=== PATIENT | male | born 1955 | race African-American/Black ===

== ENCOUNTER 2023-06-10 10:36 | Outpatient (CLI) | payer MEDICARE, OTHER | END 2023-06-10 10:37 | disposition home or self-care (01) | LOC: CSHULT 10:36 | PROVIDERS: ATTEND Family Medicine | DX: R74.01 Elevation of levels of liver transaminase levels (principal); K80.20 Calculus of gallbladder without cholecystitis without obstruction | CPT/HCPCS: 76700 ==

== ENCOUNTER 2024-05-03 12:12 | Outpatient (CLI) | payer MEDICARE, OTHER ==
[2024-05-03] MEDS ORDERED: Magnevist 469MG/ML 20 ML VIAL ONE (13:35)
== END 2024-05-03 12:13 | disposition home or self-care (01) ==
LOC: CSHULT 12:12
PROVIDERS: ATTEND Psychiatry & Neurology Neurology
DX: M48.061 Spinal stenosis, lumbar region without neurogenic claudication (principal); G62.9 Polyneuropathy, unspecified; M47.816 Spondylosis without myelopathy or radiculopathy, lumbar region; Q76.49 Other congenital malformations of spine, not associated with scoliosis; M51.46 Schmorl's nodes, lumbar region; I70.203 Unspecified atherosclerosis of native arteries of extremities, bilateral legs; R93.6 Abnormal findings on diagnostic imaging of limbs
CPT/HCPCS: 72158; 93923